=== PATIENT | male | born 1965 | race Caucasian/White ===

== ENCOUNTER 2021-12-31 06:39 | Observation (INO) ==
--- NOTE | 2021-12-19 10:26 | PAT Medication Instructions ---
Medication Instructions Date of Service December 19, 2021 Home Medications topiramate 25 mg sprinkle capsule 25 mg PO BID acetaminophen 500 mg tablet (Tylenol Extra Strength) 1,000 mg PO Q8H PRN Pain colestipol 1 gram tablet 1 g PO HS ferrous sulfate 325 mg (65 mg iron) tablet 325 mg PO BID gabapentin 800 mg tablet 800 mg PO BID meloxicam 15 mg tablet 15 mg PO QAM nortriptyline 10 mg capsule 10 mg PO BID ASK your surgeon for instructions meloxicam 15 mg tablet 15 mg PO QAM ASK your prescriber and surgeon nortriptyline 10 mg capsule 10 mg PO BID STOP taking 48 hours before surgery colestipol 1 gram tablet 1 g PO HS DO NOT take the morning of surgery ferrous sulfate 325 mg (65 mg iron) tablet 325 mg PO BID Take morning of surgery With a small sip of water, OTHERWISE NOTHING TO EAT OR DRINK AFTER MIDNIGHT: topiramate 25 mg sprinkle capsule 25 mg PO BID acetaminophen 500 mg tablet (Tylenol Extra Strength) 1,000 mg PO Q8H PRN Pain (if needed) gabapentin 800 mg tablet 800 mg PO BID Take evening before surgery topiramate 25 mg sprinkle capsule 25 mg PO BID acetaminophen 500 mg tablet (Tylenol Extra Strength) 1,000 mg PO Q8H PRN Pain (if needed) ferrous sulfate 325 mg (65 mg iron) tablet 325 mg PO BID gabapentin 800 mg tablet 800 mg PO BID Other Notes If you have any questions please call us at [phone] or [phone] or [phone] or [phone]
--- NOTE | 2021-12-21 14:21 | Anesthesiology Consultation ---
Date of Service December 21, 2021 Assessment & Plan (1) Encounter for pre-operative examination: - awaiting PCP response regarding hyperkalemia. PAT testing to be faxed to PCP. - hyperkalemia (5.4): PCP office made aware, requests copies of labs which I advised will be faxed. Optimization form completed. - Outpatient joint assessment: Patient is currently scheduled for inpatient pathway. If re-evaluated pending system levels during current pandemic/surgeon requests outpatient pathway, patient is not recommended candidate for outpatient joint program from anesthesia standpoint. Chart Review Chart Review: Pending: Refer to Additional Notes / Consult section and Patient seen in Pre Admission Testing Teaching & Discussion Pre-Anesthesia Teaching/Discussion Notes: Instructed NPO after midnight before surgery, except medications with 15 cc of water. Medication instructions provided according to the PAT guidelines. History Surgery Operation Date: 12/31/21 14:10 Proposed Procedures p Right Total Knee Arthroplasty - Aristeo Cantu MD Height/Weight Height: 5 ft 11 in Weight: 130.635 kg Allergies Allergy/AdvReac Type Severity Reaction Status Date / Time morphine AdvReac Intermediate Migraines Verified 12/18/21 14:39 Medications Home Medications Medication Instructions Recorded Confirmed Last Taken topiramate 25 mg sprinkle capsule 25 mg PO BID 10/03/20 12/18/21 10/31/20 19:00 acetaminophen 500 mg tablet 1,000 mg PO Q8H PRN Pain 12/18/21 12/18/21 Unknown (Tylenol Extra Strength) colestipol 1 gram tablet 1 g PO HS 12/18/21 12/18/21 Unknown ferrous sulfate 325 mg (65 mg 325 mg PO BID 12/18/21 12/18/21 Unknown iron) tablet gabapentin 800 mg tablet 800 mg PO BID 12/18/21 12/18/21 Unknown meloxicam 15 mg tablet 15 mg PO QAM 12/18/21 12/18/21 Unknown nortriptyline 10 mg capsule 10 mg PO BID 12/18/21 12/18/21 Unknown Past Medical History Medical History (Updated 12/21/21 @ 14:27 by Shannan Lorenzo PA-C) Anxiety History of COVID-19 2020, pcr [facility], not hosp; had at the time bronchitis>resolved. Hx of tinnitus wears bilat. hearing aids to "control this" Iron deficiency Irritable bowel syndrome Obesity Peripheral neuropathy feet Post traumatic stress disorder Patient denies h/o stroke, seizures, heart attack, heart failure, DM, blood clots or blood transfusions. Exercise / Class Metabolic Activity II 4-5 Yardwork/Stairs/Walk up hill (denies CP or SOB with 1 FOS) Past Family History Family History Father Family history of esophageal cancer Other No family history of adverse response to anesthesia Past Surgical History Surgical History (Updated 12/21/21 @ 14:28 by Shannan Lorenzo PA-C) H/O foot surgery Left heel tendon repair H/O lumbosacral spine surgery L5-S1 decompression fusion. H/O sinus surgery History of colonoscopy History of total left knee replacement (TKR) 11/01/20 L3-L4 1 attempt + PNB. Hx laparoscopic cholecystectomy Hx of arthroscopy Rt. hip Hx of arthroscopy of shoulder rt. Hx of gastric bypass 2004 [place] teeth removed Past Anesthesia History No Hx of Anesthesia Complications and No Family Hx of Anesthesia Complications History of PONV No Hx of PONV and No Hx of Motion Sickness Social History Smoking Status: Never smoker Do You Dip or Chew Tobacco: No Hx Alcohol Use: Yes Alcohol type: beer alcohol intake frequency: a few times a month Hx Substance Use: No substance use type: does not use Review of Systems Patient denies chest pain, shortness of breath, dyspnea on exertion, snoring, witnessed apneas, reflux, fever, chills, cough, wheezing, or palpitations. Physical Exam Vital Signs Vitals BP 161/108, pt states was held up at work and very stressed getting here, drank 2 pots of coffee today. Pt rested in clinic for 20-25 minutes and repeat manual 154/92. He states BP is usually 130s/80s, states work was very stressful today. P 97 SP02 98% on RA RESP 18 Physical Full cervical extension range of motion without pain TMD < 3 finger breadths Mallampati Score 2 Dentition: intact, partial removable bridge front; denies caps/crowns, chipped or loose teeth Lungs: normal respiratory effort. Clear throughout to auscultation, no adventitious breath sounds Cardiac: regular rate and rhythm, no murmurs noted Carotid arteries: negative bruit bilat Lab Results Anesthesia Preop Results Results Anesthesia Widget: WBC 7.20 K/ul (4.8-10.8) 12/21/21 Hgb 16.0 g/dl (14.0-18.0) 12/21/21 Hct 48.6 % (40.1-51.0) 12/21/21 Plt 263 K/uL (130-400) 12/21/21 Na 140 mmol/L (136-145) 12/21/21 K 5.4 mmol/L (3.5-5.1) H 12/21/21 Cl 106 mmol/L (98-107) 12/21/21 CO2 27 mmol/L (21-32) 12/21/21 BUN 17 mg/dl (6-23) 12/21/21 Creat 1.14 mg/dl (0.6-1.4) 12/21/21 Glucose Level 101 mg/dl (70-99(Fasting)) H 12/21/21 PT 10.4 Seconds (9.0-12.0) 12/21/21 PTT 28.3 Seconds (21.0-31.0) 12/21/21 INR 1.0 (0.9-1.1) 12/21/21 HA1c 5.6 % (4.5-5.6) 12/21/21 Urine Color Yellow 12/21/21 Urine Appearance Clear (Clear) 12/21/21 Urine pH 6.5 (4.5-7.5) 12/21/21 Urine Specific [place] 1.017 (1.000-1.030) 12/21/21 Urine Protein Negative (Negative) 12/21/21 Urine Glucose (UA) Negative (Negative) 12/21/21 Urine Ketones Negative (Negative) 12/21/21 Urine Blood Negative (Negative) 12/21/21 Urine Nitrite Negative (Negative) 12/21/21 Urine Bilirubin Negative (Negative) 12/21/21 Urine Urobilinogen Negative (Negative) 12/21/21 Urine Leukocyte Esterase Negative (Negative) 12/21/21 Blood Type O Positive 12/21/21 Antibody Screen NEGATIVE 12/21/21 Testing Electrocardiogram Date: 12/21/21 NSR, rate 81 bpm Nonspecific intraventricular conduction block No significant change 10/03/20 ECG Chest X-Ray Date: 12/21/21 PA and lateral chest radiographs are obtained. No prior studies are available for comparison at the time of dictation. The heart is enlarged noting atherosclerotic calcification of the thoracic aorta. The pulmonary vasculature is not congested. There is mild bibasilar atelectasis. The lungs and pleural spaces are otherwise clear. There is no pneumothorax. The bony thorax appears intact. Surgical clips are seen in the upper abdomen on the lateral projection. IMPRESSION: Cardiomegaly with no active disease in the chest.
--- NOTE | 2021-12-30 07:51 | History & Physical Report ---
Date of Service December 30, 2021 Assessment & Plan (1) Primary osteoarthritis of right knee: Plan: Treatment options discussed with the patient. He has had conservative measures. He would like to proceed with surgical intervention. Risks, benefits and alternatives to surgery including but not limited to infection, DVT, pain, stiffness, need for revision surgery, damage to blood vessels, damage to nerves, PE, , were discussed with the patient and they wish to proceed. Plan on right total knee arthroplasty scheduled for December 31 at [facility] with Dr. Cantu. We will plan on aspirin 81 mg twice daily for 1 month postop for DVT prophylaxis. We will plan on outpatient physical therapy. All questions answered. Patient will follow up postop. History of Present Illness Chief Complaint: Right knee pain Primary Care Provider: Parveen Ramos 56-year-old male with past medical history significant for anxiety, IBS, previous left knee replacement who presents with ongoing right knee pain. His pain is interfering with his daily activities. He has failed conservative measures including injections and bracing. He would like to proceed with right knee replacement. Patient denies headaches, sweats, fevers, chills, double vision, blurred vision, cough, sore throat, dysphagia, chest pain, sob, wheezing, n/v/d/c, numbness, tingling, fatigue, urinary symptoms, mood disorders. ROS positive for right knee pain and stiffness. Allergies Allergy/AdvReac Type Severity Reaction Status Date / Time morphine AdvReac Intermediate Migraines Verified 12/31/21 07:27 Home Medications Medication Instructions Recorded Confirmed Type topiramate 25 mg sprinkle capsule 25 mg PO BID 10/03/20 12/31/21 History acetaminophen 500 mg tablet 1,000 mg PO Q8H PRN Pain 12/18/21 12/31/21 History (Tylenol Extra Strength) colestipol 1 gram tablet 1 g PO HS 12/18/21 12/31/21 History ferrous sulfate 325 mg (65 mg 325 mg PO BID 12/18/21 12/31/21 History iron) tablet gabapentin 800 mg tablet 800 mg PO BID 12/18/21 12/31/21 History meloxicam 15 mg tablet 15 mg PO QAM 12/18/21 12/31/21 History nortriptyline 10 mg capsule 10 mg PO BID 12/18/21 12/31/21 History Past Med/Surg History Medical History Anxiety History of COVID-19 2020, pcr [facility], not hosp; had at the time bronchitis>resolved. Hx of tinnitus wears bilat. hearing aids to "control this" Iron deficiency Irritable bowel syndrome Obesity Peripheral neuropathy feet Post traumatic stress disorder Surgical History H/O foot surgery Left heel tendon repair H/O lumbosacral spine surgery L5-S1 decompression fusion. H/O sinus surgery History of colonoscopy History of total left knee replacement (TKR) 11/01/20 L3-L4 1 attempt + PNB. Hx laparoscopic cholecystectomy Hx of arthroscopy Rt. hip Hx of arthroscopy of shoulder rt. Hx of gastric bypass 2004 [place] teeth removed Family History Father Family history of esophageal cancer Other No family history of adverse response to anesthesia Social History Smoking Status: Never smoker Second Hand Exposure: Yes; Do You Dip or Chew Tobacco: No; Tobacco Cessation Education Requested by Patient: No Hx Alcohol Use: Yes Alcohol type: beer Hx Substance Use: No Preferred Language: [place] Communication Ability: Effective Video Game Engineer Required: No Beliefs That Will Affect Care: None Current Living Situation: Spouse Other Information That Helps Us Care for You: No Feels Safe at Home: Yes Safety Concerns: Feels Safe At This Time Assistive Devices: Denture - Upper, Glasses and Hearing Aid - Bilateral Assistive Devices Comment: partial upper denture Review of Systems All systems reviewed & are unremarkable except as noted in HPI & below Physical Exam Constitutional: well developed and well nourished; no acute distress Eyes: PERRL, conjunctivae normal, anicteric sclerae ENMT: external ear and nose normal, oropharynx normal Neck: trachea midline, no thyromegaly Respiratory: normal respiratory effort, lungs clear to auscultation Cardiovascular: RRR, no murmur, no edema Musculoskeletal: Right knee: Tenderness medial joint line. Varus alignment. Stable to valgus and varus stress test. Positive Catina's. Range of motion 0 to 115 degrees. Skin: no rashes, warm and dry Neurologic: patellar DTR's 2+ bilat, sensation intact Psychiatric: A+Ox3, euthymic affect Results & Data ([facility]) Diagnostic Findings Right knee radiographs: Significant joint space narrowing medial compartment, likely [id number]. There is peritubular osteophyte formation. Degenerative changes patellofemoral compartment.
[~2021-12-31 06:39] MED LIST: ACETAMINOPHEN 500 MG TAB PO SCH; BUPIVACAINE 0.5 % 5 MG/1 ML PF 10ML VIAL ONE; CeleBREX 200 MG CAP PO SCH; FAMOTIDINE 20 MG TAB PO SCH; GABAPENTIN 600 MG DOSE PO SCH; LR 500ML BOLUS, THEN 15ML/HR IV SCH; METOCLOPRAMIDE HCL 10 MG TABLET PO SCH; ROPIVACAINE 0.5% 5 MG/ML 30 ML VIAL ONE; ROPIVACAINE 0.5% HCL/PF 150 MG, BUPIVACAINE 0.75% MPF 20 ML, EPINEPHrine 30MG/30ML (OR ... INFIL SCH; TRANEXAMIC ACID 1,000 MG **IV Intra-op IV SCH; TRANEXAMIC ACID 1,000 MG **IV Pre-op IV SCH; dexAMETHasone 4 MG TAB PO SCH
[2021-12-31] MEDS ORDERED: KETAMINE 50 MG/5 ML SYRINGE ONE (07:37)
[2021-12-31] MEDS ORDERED: ONDANSETRON INJ 2 MG/ML 2 ML VIAL ONE (07:37)
[2021-12-31] MEDS ORDERED: GLYCOPYRROLATE 0.2 MG/ML VIAL ONE (07:37)
[2021-12-31] MEDS ORDERED: MIDAZOLAM HCL 1 MG/ML 2ML VIAL ONE ×2 (07:37)
[2021-12-31] MEDS ORDERED: PROPOFOL IV EMULSION 10 MG/ML 20 ML VIAL IV ONE ×3 (07:37→10:39)
[2021-12-31] MEDS ORDERED: LIDOCAINE 2% MPF LOCAL 5 ML VIAL INFIL ONE (07:37)
--- NOTE | 2021-12-31 07:38 | History & Physical Bridge Note ---
Date of Service December 31, 2021 History & Physical Bridge Note I have examined the patient, reviewed the History & Physical and in the interval since the performance of the History & Physical I have noted the following changes of clinical significance: areas of pink skin from brace rubbing no skin breakdown or drainage or infection not in incisional area.
[2021-12-31] MEDS ORDERED: ATROPINE SULFATE 0.1 MG/ML 10ML SYR IV PRN (08:33)
[2021-12-31] MEDS ORDERED: fentaNYL citrate 100 MCG/2 ML VIAL IV PRN (08:33)
[2021-12-31] MEDS ORDERED: ePHEDrine sulfate 50 MG/ML AMP IV PRN (08:33)
[2021-12-31] MEDS ORDERED: ONDANSETRON INJ 2 MG/ML 2 ML VIAL IV PRN ×2 (08:33→13:07)
[2021-12-31] MEDS ORDERED: ORTHO JOINT ANESTHETIC ONE (08:47)
--- NOTE | 2021-12-31 11:08 | Operative Report ---
Post Operative Report Pre & Post Diagnosis Operation Date: 12/31/21 09:40 Pre-Op Diagnosis: Right Knee Osteoarthritis Post-Op Diagnosis: Right Knee Osteoarthritis I identified the patient and participated in the time-out.: Yes Procedure Operation Date: 12/31/21 09:40 Actual Procedures p Right Total Knee Arthroplasty(Right), reina and Acticoat superficial wound VAC application- Aristeo Cantu MD Surgeon Aristeo Cantu MD Baggageman Agapito HINDS Estimated Blood Loss 5 Findings Consistent with Post-Op Diagnosis Specimens Bone cuts Drains 2 Hemovac Anesthesia Type MAC Spinal Regional Complications none Disposition Accompanied Patient To Recovery: No Indications 56-year-old male with progressive osteoarthritis in his right knee failed conservative management. Patient had a previous successful left knee replacement. Right knee is [id number] medial compartment a varus knee and moderate patellofemoral osteoarthritis. Description of Procedure Patient was taken to the operating room placed supine on the operating table and anesthetized under spinal MAC regional block anesthesia. Exam under anesthesia demonstrated 0 through 130 degrees range of motion no instability. A pneumatic tourniquet was placed about the thigh of the right lower extremity. The right lower extremity was prepped and draped in usual sterile fashion. The leg was elevated exsanguinated with an Esmarch bandage and the pneumatic tourniquet was raised to 350 mm mercury. An anterior incision was made across the right knee. The skin was incised longitudinally subcutaneous flaps were elevated and an incision was made through the medial retinaculum extending up into the mid third of the quadriceps tendon and extended down to the medial tibial tubercle. Intra-articular findings demonstrated [id number] anteromedial knee joint. Grade 4 trochlear lesion and central trochlea. Patella articular cartilage still intact. Degeneration medial meniscus mid and posterior horn. The knee was exposed by excising the infrapatellar fat pad, excising the meniscal remnants and anterior cruciate ligament. Any inflamed synovial tissue was resec bobby. The fat pad over the anterior femur was resected for placement of the component in that area. The lateral synovial bands were release. The femur was exposed. The custom femoral cutting block was pinned in position. The distal femoral cutting block was applied. The distal femoral cut was made with the oscillating saw. The size 9, 4-in-1 cutting block was placed. The anterior and posterior chamfer cuts were made. The knee was extended and a subperiosteal peel lateral release was performed around the patella. The patella width was measured and width was reproduced using freehand cut technique. The 38 millimeter symmetrical patella was used. 3 drill holes are made for the pegs. The tibia was exposed. A custom tibial cutting block was positioned and drill holes were made for the cutting guide. Cutting guide was placed and the proximal cut was made with the oscillating saw. All osteophytes were resected. The lamina parts expediter was used to assess ligamentous balance and the ligaments were balanced in extension and flexion. This required a medial posterior medial release pie crusting MCL. The tibia was reexposed and measured for a size F tibial component. This was externally rotated in line with the tibial tubercle and the fixation pins were drilled. The proximal tibia was fashioned with the drill and punch. The size 9 CR femoral trial was inserted. The trial MC inserts were used. The 13 mm insert gave balanced ligaments through full range of motion. The patella tracked centrally. the trials were removed. The orthomix anesthetic cocktail was injected per protocol. The knee was then copiously irrigated with pulsatile lavage saline solution. The final components were cemented with Refobacin bone cement. The final components were [employer] persona size 9 standard right CR femoral component, right F tibial component, 13 right MC tibial polyethylene 38 mm symmetrical patella. After the cement cured with the knee in full extension the Betadine soak was used per protocol. The knee joint was copiously irrigated with pulsatile lavage saline solution . 2 drains were brought out laterally and connected to a Hemovac. The quadriceps tendon and medial retinaculum were closed with interrupted [id number] #1 Vicryl sutures. The knee was taken through a full range of motion and repair was secure. Patient had full range of motion 0-135 degrees range of motion. The subcutaneous tissues were closed with 2-0 Vicryl sutures and skin was closed with bernard. Sterile dressings were applied and the patient tolerated the procedure well. Agapito HINDS my physician culture media laboratory assistant participated as construction administrative assistant and was integral part in all aspects of the procedure he, assisted in soft tissue retraction, instrument management ,leg positioning, the closure and reina and Acticoat superficial wound VAC application and will participate in the postoperative care of the patient. I attest to the content of the Intraoperative Record and any orders documented therein. Any exceptions are noted below.
--- NOTE | 2021-12-31 12:47 | XRay Report ---
RIGHT KNEE 2 VIEWS History: Right total knee arthroplasty. Degenerative arthritis. Postop. FINDINGS: The patient is status post a right total knee arthroplasty. The hardware is intact. No frac ture or dislocation. Skin bernard and surgical drains are in place. IMPRESSION: Right total knee arthroplasty. No evidence for hardware complication. ACT 112: Negative or not required by law. Electronically signed by: Kalyan Vasquez M.D. 12/31/2021 12:45 PM
--- NOTE | 2021-12-31 12:51 | Anesthesiology Progress Note ---
Date of Service December 31, 2021 Anesthesia Post Procedure Vital Signs Vital Signs: Temp Pulse Pulse Resp BP Pulse Ox O2 Del Method 12/31/21 12:40 97.5 F L 64 16 120/79 96 Room Air 12/31/21 12:10 62 13 123/85 100 Oxymask 12/31/21 12:30 62 12 117/90 96 Room Air 12/31/21 12:20 63 15 124/86 97 Oxymask 12/31/21 12:00 74 13 128/84 100 Oxymask 12/31/21 11:50 76 21 121/86 100 Oxymask 12/31/21 11:43 96.8 F L 73 16 112/78 100 Oxymask 12/31/21 07:22 98.6 F 77 20 149/101 H 97 Room Air O2 Flow Rate 12/31/21 12:40 12/31/21 12:10 4 12/31/21 12:30 12/31/21 12:20 2 12/31/21 12:00 4 12/31/21 11:50 6 12/31/21 11:43 6 12/31/21 07:22 Transfer of Care Handoff Completed per policy Notes Mental Status: alert / awake / arousable and participated in evaluation Patient Amnestic to Procedure: Yes Nausea / Vomiting: adequately controlled Pain: adequately controlled Airway Patency, RR, SpO2: stable & adequate BP & HR: stable & adequate Hydration State: stable & adequate Neuraxial Anesthesia: was administered and sensory block is resolving Anesthetic Complications: no major complications apparent and Pt Satisfied with anesthetic care
[2021-12-31] MEDS ORDERED: TAMSULOSIN HCL 0.4 MG CAP PO PRN (13:07)
[2021-12-31] MEDS ORDERED: NALOXONE HCL 0.4 MG/1 ML VIAL/CARP IV PRN (13:07)
[2021-12-31] MEDS ORDERED: METOCLOPRAMIDE HCL INJ 5 MG/ML 2 ML VIAL IV PRN (13:07)
[2021-12-31] MEDS ORDERED: MAGNESIUM HYDROXIDE SUSP 30 ML UDC PO PRN (13:07)
[2021-12-31] MEDS ORDERED: bisacodyL 10 MG SUPP PR PRN (13:07)
[2021-12-31] MEDS: SODIUM CHLORIDE 0.9% 1000ML 1,000 ML IV SCH ×2 (13:16→22:44)
--- NOTE | 2021-12-31 14:00 | Hospitalist Consultation ---
Date of Consultation December 31, 2021 Assessment & Plan (1) Primary osteoarthritis of right knee: Hugo is a 56-year-old male with a past medical history of anxiety, irritable bowel syndrome, GERD, gastric bypass, L5-S1 lumbar decompression, reactive airway disease, and hypertension who presented for scheduled right total knee arthroplasty due to OA. Procedure was performed 12/31/2021, was uncomplicated with the placement of 2 drains and an estimated 5 cc of blood loss S/p right total knee Neurovascularly intact DVT prophylaxis, pain control, ambulation recommendations per primary team No surgical complications Intra-Op, doing well postop Reactive airway disease: Albuterol every 6 hours as needed, no wheezing or hypoxia time of assessment. Encourage incentive spirometer use Chronic neuropathy Unchanged, continue topiramate and nortriptyline History of gastric bypass Avoid NSAIDs Recommend PPI for stress ulcer prophylaxis while admitted No acute management Hyperlipidemia Continue colestipol Doing well postop with no acute concerns. Medicine to sign off after chart revi ew in a.m., please contact us with any new or acute concerns. History of Present Illness Attending Physician: Aristeo Cantu MD History of Present Illness Hugo is a 56-year-old male with a past medical history of anxiety, irritable bowel syndrome, GERD, gastric bypass, L5-S1 lumbar decompression, reactive airway disease, and hypertension who presented for scheduled right total knee arthroplasty due to OA. Procedure was performed 12/31/2021, was uncomplicated with the placement of 2 drains and an estimated 5 cc of blood loss Hugo is seen postoperatively at the bedside. He feels well, is having some family coming back into his right leg. Able to wiggle his toes without difficulty. No acute concerns. Notes that he did have gastric bypass, has no history or problems with GI bleeding. Time bedside is breathing comfortably, no chest pain, chest pressure, shortness of breath, difficulty breathing, fever, chills, lightheadedness, dizziness. Eating comfortably. No acute concerns. Notes he does take Topamax nortriptyline for neuropathy and these work well for him. Medical History: Reviewed Medications: Reviewed Surgical History: Reviewed Allergies: Reviewed Social History: Reviewed Code Status: Full code Allergies Allergy/AdvReac Type Severity Reaction Status Date / Time morphine AdvReac Intermediate Migraines Verified 12/31/21 07:27 Home Medications Medication Instructions Recorded Confirmed Type topiramate 25 mg sprinkle capsule 25 mg PO BID 10/03/20 12/31/21 History acetaminophen 500 mg tablet 1,000 mg PO Q8H PRN Pain 12/18/21 12/31/21 History (Tylenol Extra Strength) colestipol 1 gram tablet 1 g PO HS 12/18/21 12/31/21 History ferrous sulfate 325 mg (65 mg 325 mg PO BID 12/18/21 12/31/21 History iron) tablet gabapentin 800 mg tablet 800 mg PO BID 12/18/21 12/31/21 History meloxicam 15 mg tablet 15 mg PO QAM 12/18/21 12/31/21 History nortriptyline 10 mg capsule 10 mg PO BID 12/18/21 12/31/21 History Patient History Medical History (Updated 12/31/21 @ 17:00 by Dav Trinh MD) Anxiety History of COVID-19 2020, [facility], not hosp; had at the time bronchitis>resolved. Hx of tinnitus wears bilat. hearing aids to "control this" Iron deficiency Irritable bowel syndrome Obesity Peripheral neuropathy feet Post traumatic stress disorder Surgical History (Updated 12/31/21 @ 17:00 by Dav Trinh MD) H/O foot surgery Left heel tendon repair H/O lumbosacral spine surgery L5-S1 decompression fusion. H/O sinus surgery History of colonoscopy History of total left knee replacement (TKR) 11/01/20 L3-L4 1 attempt + PNB. Hx laparoscopic cholecystectomy Hx of arthroscopy Rt. hip Hx of arthroscopy of shoulder rt. Hx of gastric bypass 2004 [place] teeth removed Family History Father Family history of esophageal cancer Other No family history of adverse response to anesthesia Social History Smoking Status: Never smoker Second Hand Exposure: Yes; Do You Dip or Chew Tobacco: No; Tobacco Cessation Education Requested by Patient: No Hx Alcohol Use: Yes Alcohol type: beer Hx Substance Use: No Preferred Language: Monegasque Communication Ability: Effective Employee Wellness/Fitness Coordinator Required: No Beliefs That Will Affect Care: None marital status: Current Living Situation: Spouse Other Information That Helps Us Care for You: No Feels Safe at Home: Yes Safety Concerns: Feels Safe At This Time Assistive Devices: Walker Assistive Devices Comment: partial upper denture Review of Systems Review of Systems: All systems reviewed & are unremarkable except as noted in HPI & below Physical Exam Physical Exam: General: A&Ox3. NAD. Cooperative. HEENT: Atraumatic, normocephalic. EOM intact. Vision and hearing grossly intact Pulm: CTAB A&P. -wheezes, -rales, -rhonchi. Symmetrical chest rise. No increased work of breathing. No respiratory distress. Cardiac: RRR, -mrg. Radial pulses intact and symmetrical. Abdominal: Nontender, nondistended, soft. BS present. Extremities: Right knee and postop wrap. Sensation intact in toes bilaterally. Able to wiggle toes bilaterally without difficulty. PT pulse intact bilaterally without asymmetry. No edema. Right knee drain in place draining singular sanguinous material Results & Data Results & Data ([facility]) Vital Signs (Past 12 Hours) Vital Signs Temp Pulse Pulse Resp BP Pulse Ox O2 Del Method 12/31/21 13:38 36.6 C 87 16 131/90 99 Room Air 12/31/21 13:10 36.6 C 86 16 132/90 96 Room Air 12/31/21 12:50 61 19 123/76 97 Room Air 12/31/21 12:40 36.4 C L 64 16 120/79 96 Room Air 12/31/21 12:10 62 13 123/85 100 Oxymask 12/31/21 12:30 62 12 117/90 96 Room Air 12/31/21 12:20 63 15 124/86 97 Oxymask 12/31/21 12:00 74 13 128/84 100 Oxymask 12/31/21 11:50 76 21 121/86 100 Oxymask 12/31/21 11:43 36 C L 73 16 112/78 100 Oxymask 12/31/21 07:22 37 C 77 20 149/101 H 97 Room Air O2 Flow Rate 12/31/21 13:38 12/31/21 13:10 12/31/21 12:50 12/31/21 12:40 12/31/21 12:10 4 12/31/21 12:30 12/31/21 12:20 2 12/31/21 12:00 4 12/31/21 11:50 6 12/31/21 11:43 6 12/31/21 07:22 PG Care Time/CCT Total # of Minutes Spent Total Time Spent with Patient: Total time spent is greater than 50% in coordination of care (as documented) at patient's floor/unit and/or counseling patient: Coding Level of Care Code 29528 Inpt Consult Level 4 Diagnoses Primary osteoarthritis of right knee M17.11
[2021-12-31] MEDS: ACETAMINOPHEN 500 MG TAB PO SCH ×2 (14:13→22:44)
[2021-12-31] MEDS: oxyCODONE HCL IR 5 MG TAB (IMMEDIATE RELEASE) PO PRN ×2 (17:05→22:52)
[2021-12-31] MEDS: ceFAZolin 2000MG 2,000 MG/15 ML SYR IV SCH (19:05)
[2021-12-31] MEDS: TOPIRAMATE 25 MG TAB PO SCH (20:53)
[2021-12-31] MEDS: GABAPENTIN 800 MG TAB PO SCH (20:54)
[2021-12-31] MEDS: DOCUSATE SODIUM 100 MG CAP PO SCH (20:55)
[2021-12-31] MEDS: NORTRIPTYLINE HCL 10 MG CAP PO SCH (20:55)
[2021-12-31] MEDS: FERROUS SULFATE 325 MG TAB PO SCH (20:56)
[2021-12-31] MEDS: ASPIRIN 81 MG ECTAB PO SCH (20:56)
[2021-12-31] MEDS ORDERED: SENNA 8.6 MG TAB PO SCH (21:00)
[2021-12-31] MEDS ORDERED: COLESTIPOL HCL 1 GM TAB PO SCH (21:00)
[2021-12-31] MEDS: HYDROmorphone INJ 0.5 MG/0.5 ML SYR IV PRN (21:02)
[2022-01-01] MEDS: ceFAZolin 2000MG 2,000 MG/15 ML SYR IV SCH (01:43)
[2022-01-01] MEDS: HYDROmorphone INJ 0.5 MG/0.5 ML SYR IV PRN (01:47)
[2022-01-01] MEDS: ACETAMINOPHEN 500 MG TAB PO SCH (06:12)
[2022-01-01 06:37] LABS: Hematocrit (blood only) 41.4 % (40.1-51.0); Hemoglobin 13.6 g/dl (14.0-18.0); Mean Corpuscular Hemoglobin 26.7 pg (25.0-34.0); Mean Corpuscular Hgb Conc 32.9 g/dL (32.0-36.0); Mean Corpuscular Volume 81.2 fL (80.0-100.0); Mean Platelet Volume 8.5 fL (9.4-12.4); Platelet Count 232 K/uL (130-400); RDW Coefficient of Variation 13.9 % (11.5-14.5); RDW Standard Deviation 41.1 fL (36.4-46.3)
[2022-01-01 06:59] LABS: BUN Creatinine Ratio 22.3 (10-20); Calcium 8.4 mg/dl (8.5-10.1); Creatinine Clr Calc Pharmacy 120.7 ml/min; Est GFR (African American) 103.9 ml/min; Est GFR (Non-African American) 89.6 ml/min; Potassium 4.5 mmol/L (3.5-5.1)
[2022-01-01] MEDS ORDERED: MULTIVITAMIN TAB PO SCH (09:00)
[2022-01-01] MEDS ORDERED: MELOXICAM 7.5 MG TAB PO SCH (09:00)
[2022-01-01] MEDS: TOPIRAMATE 25 MG TAB PO SCH (09:18)
[2022-01-01] MEDS: NORTRIPTYLINE HCL 10 MG CAP PO SCH (09:18)
[2022-01-01] MEDS: GABAPENTIN 800 MG TAB PO SCH (09:19)
[2022-01-01] MEDS: ASPIRIN 81 MG ECTAB PO SCH (09:19)
[2022-01-01] MEDS: FERROUS SULFATE 325 MG TAB PO SCH (09:19)
[2022-01-01] MEDS: DOCUSATE SODIUM 100 MG CAP PO SCH (09:19)
--- NOTE | 2022-01-01 09:19 | Orthopedic Progress Note ---
Date of Service January 01, 2022 Assessment & Plan (1) Primary osteoarthritis of right knee: Plan: Postop day 1 status post right total knee arthroplasty PT/OT protocols. Weightbearing as tolerated. DVT prophylaxis-aspirin p.o. twice daily, SCDs, JEMIMA meléndez. Pain management as written. DC planning-patient is planning for outpatient PT upon discharge. Admission and Anticipated Discharge Date Admission Date: December 31, 2021 Subjective Postop day 1 Patient sitting up in bed awake and alert. Having some pain this morning but tolerating well. He has been taking his medication regularly. No other complaints. Denies shortness of breath, chest pain, lightheadedness. He is hoping to go home today. Physical Exam Physical Exam: Dressings are clean, dry, and intact. Calves are soft nontender. Neurovascular is intact. Toes are mobile. He has good dorsiflexion and plantarflexion of the right foot. Hemovac drainage was 115 mL from the previous shift. Results & Data ([facility]) Vital Signs (Past 12 Hours) Vital Signs Temp Pulse Resp BP Pulse Ox O2 Del Method 01/01/22 06:33 36.6 C 69 18 138/92 97 Room Air 01/01/22 02:53 36.7 C 84 18 124/85 98 Room Air 01/01/22 00:11 36.5 C 96 H 18 127/87 97 Room Air 12/31/21 22:25 36.9 C 100 H 18 144/96 H 93 Room Air Laboratory Results Laboratory Results WBC 10.90 K/ul (4.8-10.8) H 01/01/22 06:19 RBC 5.10 M/uL (4.63-6.08) 01/01/22 06:19 Hgb 13.6 g/dl (14.0-18.0) L 01/01/22 06:19 Hct 41.4 % (40.1-51.0) 01/01/22 06:19 MCV 81.2 fL (80.0-100.0) 01/01/22 06:19 MCH 26.7 pg (25.0-34.0) 01/01/22 06:19 MCHC 32.9 g/dL (32.0-36.0) 01/01/22 06:19 RDW Std Deviation 41.1 fL (36.4-46.3) 01/01/22 06:19 RDW Coeff of Cholo 13.9 % (11.5-14.5) 01/01/22 06:19 Plt Count 232 K/uL (130-400) 01/01/22 06:19 MPV 8.5 fL (9.4-12.4) L 01/01/22 06:19 Sodium 137 mmol/L (136-145) 01/01/22 06:19 Potassium 4.5 mmol/L (3.5-5.1) 01/01/22 06:19 Chloride 107 mmol/L (98-107) 01/01/22 06:19 Carbon Dioxide 25 mmol/L (21-32) 01/01/22 06:19 Anion Gap 5 (3-11) 01/01/22 06:19 BUN 21 mg/dl (6-23) 01/01/22 06:19 Creatinine 0.94 mg/dl (0.6-1.4) 01/01/22 06:19 Est Cr Clr Drug Dosing 120.7 ml/min 01/01/22 06:19 Est GFR ( Amer) 103.9 ml/min 01/01/22 06:19 Est GFR (Non-Af Amer) 89.6 ml/min 01/01/22 06:19 BUN/Creatinine Ratio 22.3 (10-20) H 01/01/22 06:19 Glucose 119 mg/dl (70-99(Fasting)) H 01/01/22 06:19 Calcium 8.4 mg/dl (8.5-10.1) L 01/01/22 06:19 SARS-CoV-2, RNA, NAAT NEGATIVE (NEGATIVE) 12/31/21 07:15 Impressions Knee X-Ray 12/31/21 11:48 RIGHT KNEE 2 VIEWS History: Right total knee arthroplasty. Degenerative arthritis. Postop. FINDINGS: The patient is status post a right total knee arthroplasty. The hardware is intact. No fracture or dislocation. Skin bernard and surgical drains are in place. IMPRESSION: Right total knee arthroplasty. No evidence for hardware complication. ACT 112: Negative or not required by law. Electronically signed by: Kalyan Vasquez M.D. 12/31/2021 12:45 PM
--- NOTE | 2022-01-01 09:37 | Communication Note ---
Date of Service: January 01, 2022 Charts and postop labs reviewed. Medications prescribed per her medication list. Vital signs stable. Postoperative labs unremarkable other than an in creased white blood cell count which is to be expected. No concerns seen on orthopedic note. Medicine will sign off at this time. Thank you for the consult. Please contact [facility] physician group hospitalist on-call for any questions or concerns.
[2022-01-01] MEDS ORDERED: KETOROLAC 30 MG/ML VIAL IV ONE (10:57)
[2022-01-01] MEDS ORDERED: HYDROCODONE/ACETAMOPHEN 5/325MG TAB PO PRN ×2 (10:59→11:19)
[2022-01-01] MEDS ORDERED: KETOROLAC 30 MG/ML VIAL IV SCH (11:30)
[2022-01-01] MEDS ORDERED: PNEUMOCOCCAL Polysaccharide Vaccine 25mcg/0.5mL vial/Syr IM ONE (13:15)
--- NOTE | 2022-01-02 12:46 | Discharge Summary ---
Date of Service January 02, 2022 Admission HPI Per Admitting Provider 56-year-old male with past medical history significant for anxiety, IBS, previous left knee replacement who presents with ongoing right knee pain. His pain is interfering with his daily activities. He has failed conservative measures including injections and bracing. He would like to proceed with right knee replacement. Patient denies headaches, sweats, fevers, chills, double vision, blurred vision, cough, sore throat, dysphagia, chest pain, sob, wheezing, n/v/d/c, numbness, tingling, fatigue, urinary symptoms, mood disorders. ROS positive for right knee pain and stiffness. Admission Exam Per Admitting Provider Constitutional: well developed and well nourished; no acute distress Eyes: PERRL, conjunctivae normal, anicteric sclerae ENMT: external ear and nose normal, oropharynx normal Neck: trachea midline, no thyromegaly Respiratory: normal respiratory effort, lungs clear to auscultation Cardiovascular: RRR, no murmur, no edema Musculoskeletal: Right knee: Tenderness medial joint line. Varus alignment. Stable to valgus and varus stress test. Positive Catina's. Range of motion 0 to 115 degrees. Skin: no rashes, warm and dry Neurologic: patellar DTR's 2+ bilat, sensation intact Psychiatric: A+Ox3, euthymic affect Principal Diagnosis Right knee osteoarthritis Discharge Exam Dressings are clean, dry, and intact. Calves are soft nontender. Neurovascular is intact. Toes are mobile. He has good dorsiflexion and plantarflexion of the right foot. Hemovac drainage was 115 mL from the previous shift. Constitutional well developed and well nourished; no acute distress Discharge Data Allergies Allergy/AdvReac Type Severity Reaction Status Date / Time morphine AdvReac Intermediate Migraines Verified 12/31/21 07:27 Consultations 12/28/21 08:31 Consult Hospitalist Routine Procedures Performed Operation Date: 12/31/21 09:40 Actual Procedures p Right Total Knee Arthroplasty(Right) - Aristeo Cantu MD Ordered Studies 12/31/21 05:00 US - OR guided needle placemen Routine Hospital Course (1) Primary osteoarthritis of right knee: Postop day 1 status post right total knee arthroplasty PT/OT protocols. Weightbearing as tolerated. DVT prophylaxis-aspirin p.o. twice daily, SCDs, JEMIMA hose. Pain management as written. DC planning-patient is planning for outpatient PT upon discharge. Lab Results 12/31/21 01/01/22 01/01/22 Range/Units 07:15 06:19 06:19 WBC 10.90 H (4.8-10.8) K/ul RBC 5.10 (4.63-6.08) M/uL Hgb 13.6 L (14.0-18.0) g/dl Hct 41.4 (40.1-51.0) % MCV 81.2 (80.0-100.0) fL MCH 26.7 (25.0-34.0) pg MCHC 32.9 (32.0-36.0) g/dL RDW Std Deviation 41.1 (36.4-46.3) fL RDW Coeff of Cholo 13.9 (11.5-14.5) % Plt Count 232 (130-400) K/uL MPV 8.5 L (9.4-12.4) fL Sodium 137 (136-145) mmol/L Potassium 4.5 (3.5-5.1) mmol/L Chloride 107 (98-107) mmol/L Carbon Dioxide 25 (21-32) mmol/L Anion Gap 5 (3-11) BUN 21 (6-23) mg/dl Creatinine 0.94 (0.6-1.4) mg/dl Est Cr Clr Drug Dosing 120.7 ml/min Est GFR ( Amer) 103.9 ml/min Est GFR (Non-Af Amer) 89.6 ml/min BUN/Creatinine Ratio 22.3 H (10-20) Glucose 119 H (70-99(Fasting)) mg/dl Calcium 8.4 L (8.5-10.1) mg/dl SARS-CoV-2, RNA, NAAT NEGATIVE (NEGATIVE) Total Time Total Time Spent Total Time Spent (In Minutes): 20 Discharge Plan Discharge Items Patient Disposition: Home - Self-Care Reason For Visit: Right Knee Osteoarthritis Discharge Diagnosis: Right knee osteoarthritis Activity: Per Instructions section Weightbearing: Right weightbearing Weightbearing Comment: As tolerated with walker Non-emergency contact: Surgeon Call non-emergency contact if: you have any medication questions, your pain is not controlled, your pain is concerning for you, you have a fever, your temperature is above 101, your wound has increased redness and your wound has increased drainage Follow-up/Referrals: Aristeo Cantu MD [Surgeon] - (Follow-up with Dr. Crespo in 2 weeks from the day of your surgery for your first postoperative visit. Please call for appointment if one has not been made for you.) Parveen Ramos D.O. [Primary Care Provider] - Diet: Regular Addtl Attending Provider Instructions: ACTIVITY RECOMMENDATIONS: SELF CARE INSTRUCTIONS AFTER TOTAL KNEE REPLACEMENT A. You may need to continue a physical therapy program after discharge from the hospital. There are several options available to you. Your doctor will assist you in selecting the best one for you. 1. An out-patient facility 2 to 3 times a week for therapy or home therapy. 2. Continue working on all exercises taught to you in the hospital. Your goals should be to increase bending of your knee to 90 degrees and beyond and to fully straighten your knee. B. You may progress at your own pace from walking with a walker or crutches to a cane; then to no assistive devices. C. Make walking a part of your daily routine. Be up as much as comfortable with rest periods throughout the day. Rest with leg elevation is very important. Use the ice wrap frequently for the first 3-4 weeks. D. There are no restrictions on activities. You may ride in a car, shop, participate in stumper feller and all social activities. E. Wear the long elastic stockings (JEMIMA hose) 20 hours a day for 2 weeks after surgery. They can be removed several times a day for laundering and for a bath. F. You may shower, no tub baths until cleared by your doctor. SPECIAL CARE INSTRUCTIONS: VERY IMPORTANT TO READ AND REVIEW A. There are a few signs you need to watch for after you are home. Call [facility] if you notice any of the followin. Increased severe knee pain. Some pain is expected especially when you exercise. 2. Increased swelling in your leg or knee; pain or swelling of the calf muscle in either lower leg. 3. Any fluid drainage from the incision. 4. Shortness of breath or chest pain. B. Please call [facility] at if you have any concerns or questions about your operation or recovery. The doctor or his nurse will return your call promptly. C. You must take antibiotics before dental work, bladder, bowel or other surgery. Your doctor will provide you with a permanent care to carry describing this precaution. IMPORTANT: * REMEMBER TO TAKE ASPIRIN, 81 MG, TWICE DAILY FOR 4 WEEKS UNLESS OTHERWISE DIRECTED. THIS IS YOUR BLOOD THINNER. * CALL IF INCREASED PAIN, REDNESS, DRAINAGE OR FEVER GREATER THAT 101. * WEAR JEMIMA HOSE 20 HOURS PER DAY FOR 2 WEEKS. There is a large suction dressing covering your incision. This will help pull any excess drainage from the wound and allow your incision to heal properly. You may shower with this if you can keep the unit outside of the shower. If any bleeding or leakage is noted please call your doctor's office. This will remain on your incision for 7 days and then should be removed. This can be done yourself or by the home nursing staff if applicable. The entire unit is disposable once removed. Once removed, keep incision clean and dry. If redness or drainage is noted, please call your surgeon. IF INCISION IS LEAKING THROUGH DRESSING, CALL THE OFFICE . FOLLOW UP VISIT: If appointment is not already scheduled: Please call [facility] [place] to make a follow-up appointment for 2 weeks after your surgery at . Stand-Alone Forms: [facility] [employer], Smoking Cessation Medications and DC Order Prescriptions: New acetaminophen [Tylenol Extra Strength] 500 mg Tablet 1,000 mg PO Q8 14 Days Qty: 84 0RF aspirin 81 mg Tablet,Delayed Release (Dr/Ec) 81 mg PO BID 30 Days Qty: 60 0RF polyethylene glycol 3350 [Miralax] 17 gram powder in packet 17 g PO DAILY PRN (Reason: constipation) Qty: 5 0RF oxycodone 5 mg tablet 5 - 10 mg PO Q4H PRN (Reason: pain) Qty: 36 0RF Continued topiramate 25 mg Capsule, Sprinkle 25 mg PO BID gabapentin 800 mg Tablet 800 mg PO BID nortriptyline 10 mg Capsule 10 mg PO BID colestipol 1 gram Tablet 1 g PO HS ferrous sulfate 325 mg (65 mg iron) Tablet 325 mg PO BID Discontinued meloxicam 15 mg Tablet 15 mg PO QAM acetaminophen [Tylenol Extra Strength] 500 mg tablet 1,000 mg PO Q8H PRN (Reason: Pain) Discharge Orders: Discharge Order (Routine); Ordered 01/01/22 Ordered By: Terrell Colvin Admission Data Admit Date/Time: 12/31/21 11:48 Attending Provider: Aristeo Cantu Admit Provider: Aristeo Cantu Primary Care Provider: Parveen Ramos Other Providers: Marty Bryant Other Interventions: Discharge Summary Assessment (RN) Last Done: 01/01/22 15:37
== END 2022-01-01 17:03 | disposition home or self-care (01) ==
LOC: 3E 06:39 → ASU 06:39